=== PATIENT | male | born 1980 | race Caucasian/White ===

== ENCOUNTER → 2017-06-05 | Outpatient (CLI) | payer BC ==
[2017-06-05 09:51] LABS: ALBUMIN 3.7 gm/dl (3.4-5.0); ALT/SGPT 33 U/L (12-78); BLOOD UREA NITROGEN 13 mg/dl (7-18); CALCIUM 8.9 mg/dl (8.5-10.1); CARBON DIOXIDE 28 mmol/L (21-32); CHOLESTEROL 172 mg/dl (0-200); CREATININE 1.08 mg/dl (0.60-1.40); GLUCOSE 88 mg/dl (70-99); SODIUM 138 mmol/L (136-145)
[2017-06-05 10:01] LABS: ALKALINE PHOSPHATASE 79 U/L (45-117); AST/SGOT 18 U/L (15-37); LDL CHOLESTEROL CALCULATED 103 mg/dl; TOTAL PROTEIN 8.4 gm/dl (6.4-8.2)
== END | disposition home or self-care (01) ==
LOC: C.LAB1850 07:28
PROVIDERS: ATTEND Neuromusculoskeletal Medicine & OMM
DX: I10 Essential (primary) hypertension (principal); E66.9 Obesity, unspecified